=== PATIENT | female | born 1965 | race Caucasian/White ===

== ENCOUNTER 2017-05-24 05:00 | Inpatient (IN) | payer BC ==
[2017-05-24] MEDS ORDERED: MORPHINE SULFATE 15 MG TABLET.SA PO PRN (06:00)
[2017-05-24] MEDS ORDERED: ROPIVACAINE HCL/PF 100 MG, KETOROLAC TROMETHAMINE 30 MG, EPINEPHrine 0.2 MG in NORMAL S... IJ PRN (06:00)
[2017-05-24] MEDS ORDERED: TRANEXAMIC ACID 1,000 MG in NORMAL SALINE 100 ML IV PRN (06:00)
[2017-05-24] MEDS ORDERED: ceFAZolin SODIUM 1 GM VIAL IV PRN (06:00)
[2017-05-24] MEDS ORDERED: RINGER'S SOLUTION,LACTATED 1,000 ML IV PRN (06:00)
[2017-05-24] MEDS ORDERED: RINGER'S SOLUTION,LACTATED 1,000 ML IV ONE ×2 (06:45→07:40)
[2017-05-24] MEDS ORDERED: diphenhydrAMINE HCL 50 MG/ML VIAL IV PRN (09:16)
[2017-05-24] MEDS ORDERED: MAG HYDROX/ALUMINUM HYD/SIMETH 30 ML UDC PO PRN (09:16)
[2017-05-24] MEDS ORDERED: ACETAMINOPHEN 500 MG TABLET PO PRN (09:16)
[2017-05-24] MEDS ORDERED: ZOLPIDEM TARTRATE 5 MG TABLET PO PRN (09:16)
[2017-05-24] MEDS ORDERED: HYDROmorphone HCL 1 MG/ML DISP.SYRIN IV PRN (09:16)
[2017-05-24] MEDS ORDERED: ONDANSETRON HCL/PF 2 MG/ML VIAL IV PRN (09:16)
[2017-05-24] MEDS ORDERED: MAGNESIUM HYDROXIDE 30 ML UDC PO PRN (09:16)
[2017-05-24] MEDS ORDERED: PROMETHAZINE HCL 5 MG in DEXTROSE 5 % IN WATER 50 ML IV PRN ×2 (09:16)
[2017-05-24] MEDS ORDERED: EPINEPHrine 0.3 MG DISP.SYRIN IM PRN (09:18)
--- NOTE | 2017-05-24 09:21 | OR ---
Operative Report - Dictated Report Narrative: Date: 05/24/2017 Preoperative diagnosis: Left Knee degenerative joint disease. Postoperative diagnosis: Left Knee degenerative joint disease. Procedure: Left Total knee arthroplasty. Surgeon: Tejas Whaley M.D. Tube Molder Fiberglass: Rafal Mckeon PA-C Anesthesia: Spinal with regional block and local periarticular joint injection. Complications: None Specimens: Bone for disposal. Estimated blood loss: Minimal. Tourniquet time: 105 Minutes at 350 millimeters of mercury. Retained implants: Depuy Attune size 7 left lugged cemented posterior stabilized femoral component. Size 7 fixed-bearing cemented tibial platform. 7 by 7 millimeter posterior stabilized cross-linked tibial insert. 38 millimeter medialized patella button. Indications: Mrs. Murray is a 51-year-old female who presented on an ACL reconstruction and one on to develop posttraumatic degenerative joint disease. This patient was followed in my clinic for period of time with significant complaints of left knee pain consistent with arthritic changes. She had failed conservative measures including, but not limited to, activity modification, passage of time, medications, and other conservative measures. Patient wished to proceed with surgical treatment. The risks, benefits, and alternatives were discussed in clinic. The risks of , blood clots, bleeding, infection, nerve/tendon blood vessel/ injury, malposition of components, intraoperative fracture, postoperative limited range of motion, persistent pain, failure of components, and need for additional procedures. Patient wished to proceed consent was obtained after answering all questions. Procedure: After marking the correct extremity on the floor, the patient was taken to the operating room. A timeout was performed. IV antibiotics consisting of Ancef were administered prior to the procedure. A regional followed by spinal anesthetic was induced by anesthesia, per my request, on the operative table with all bony prominences well-padded. Pinto catheter was placed, and a bump was placed under the operative side buttock. SCDs and JOSEPHINE hose were utilized on the nonoperative leg. A well-padded tourniquet was applied to the operative thigh. The operative leg was then pre-scrubbed with alcoho,l prepped, and draped in a standard sterile fashion. After exsanguinating the extremity with an Esmarch bandage, the tourniquet was inflated. After marking out the anterior knee for standard incision centered over the patella, the skin was incised and dissected down to the joint retinaculum. The joint retinaculum was marked out as well as the horizontal axis of the patella, and a standard medial parapatellar arthrotomy was then made. The most proximal aspect of the quadriceps tendon and the patella tendon insertion were protected from release. A partial synovectomy was performed as well as a resection of the infrapatellar fat pad. The distal femoral fat pad proximal to the trochlea was also resected using cautery. The soft tissues were elevated off the medial aspect of the proximal tibia using a Martínez elevator ensuring that we did not transect the medial collateral ligament. Upon initial evaluation range of motion was approximately 0 degrees to 120 degrees of flexion. There were signs of advanced arthrosis in the medial, lateral, and patellofemoral joint spaces. There were large marginal osteophytes which were removed with a rongeur. We did encounter Ethibond suture from her ACL reconstruction which was removed using a rongeur. There do not appear to be any other retained implants. The knee was hyperflexed and the patella was tucked laterally. Protecting the surrounding soft tissues with Homans, an entry drill was placed down the femoral canal using Whitesides line for guidance into the entry point. The intramedullary femoral alignment juancho was utilized in order to cut the distal femur in 5 degrees of valgus resecting 10 millimeters of bone. Next the distal femur was sized to a size 7. A posterior referencing guide was utilized to place the distal femoral cutting block in 3 degrees of external rotation. This was pinned into place. The rotation was confirmed both visually and based on anatomic landmarks. The 4 in 1 cutting jig of the appropriate size was utilized in order to make all bony cuts. The angle wing was used to ensure no notching. Retractors were utilized in order to protect surrounding soft tissues. This cut did not result in any excessive notching. We then cut the box centered over the distal femur. This allowed for resection of the anterior and posterior cruciate ligaments. I then turned my attention to the preparation of the tibia. Using an extra medullary tibial alignment juancho, 4 millimeters of bone was resected off the medial articular surface. This was made perpendicular to the mechanical axis of the joint with the alignment juancho centered over the ankle mortise. The alignment juancho was checked and was noted to be parallel to the mechanical axis, centered over the medial one third of the tibial tubercle, paralleling the anterior surface of the tibia. We then turned our attention to the remaining meniscus and soft tissues. These were removed while protecting the surrounding ligaments and soft tissues. The marginal osteophytes off the anterior, posterior, medial, lateral aspects of the femur and tibia were removed. The tibia was sized out to a size 7. Next the tibia was drilled and punched in an externally rotated position. Next the trial femur and a series of tibial inserts were utilized in order to allow for full extension and maximal flexion. It was found that a 7 millimeter insert gave the best range of motion and stability at multiple flexion points as well as at full extension there was less than 2 mm of gapping both medially and laterally. There is minimal anterior translation with the knee at 90 degrees of flexion and no signs of being able to dislocate the knee. The patella was then prepared. The initial thickness was 25 millimeters. This was reamed down to 14 millimeters parallel to the anterior surface of the patella. It was sized out to a size 38 medialized patella button. This was then drilled and trialed. Without any medial restraint the patella tracked appropriately and did not sublux or dislocate. At this point, it was felt these were the appropriate sized implants, and all trials were removed. The standard periarticular joint injection consisting of ropivacaine, Toradol, and epinephrine were injected into the periarticular joint tissues. The bony surfaces were thoroughly irrigated with a pulsatile- suction saline irrigation device. A bone plug from the prior resected anterior chamfer cut was placed into the drill hole at the distal femur. The bony surfaces were then dried in preparation for placement of the implants. The cement was vacuum mixed per the first helper's instructions. The cement was placed on the dry bony surfaces and posterior aspect of the implants. The implants were impacted into place, removing all extruded cement. At this point anesthesia administered tranexamic acid per protocol intravenously. The knee was placed in extension with axial loading with the trial insert while the cement cured. Once the cement cured, all remaining extruded cement was removed. The knee was placed through a range of motion with the trial insert to ensure appropriate range of motion and stability. Final range of motion was approximately 0 to 120 degrees. The knee was again thoroughly irrigated with pulsatile saline lavage. The final polyethylene insert was then impacted into place ensuring no retained soft tissues. The remaining periarticular joint injection was injected. A medium Hemovac drain was placed exiting superior laterally. The knee was then placed over a triangle and the arthrotomy was closed with interrupted #1 Vicryl after thoroughly irrigating the joint. The deep and subcutaneous tissues were closed with interrupted 0 and 3-0 Vicryl respectively. Skin was closed with a running subcutaneous 3-0 Monocryl and Prineo Dermabond dressing. 4 x 4's, Sof-Rol, and a full leg David wrap were applied. All sponge, needle, blade, and instrument counts were correct prior to closing the wounds. Postoperative condition: The patient was awoken and transferred to the postanesthesia care unit in stable condition. Plan is to be admitted to the inpatient medical/surgical floor postoperatively for 24 hours of IV antibiotics , physical therapy, occupational therapy, and medical comanagement. Patient will be weightbearing as tolerated with range of motion as tolerated. DVT prophylaxis will be with SCDs, JOSEPHINE hose, and pharmacological anticoagulation. Anticipated hospital stay is approximately 2-4 days.
--- NOTE | 2017-05-24 09:39 | OR ---
Anesthesia Procedure Note - Anesthesia Procedure Note Date of Service: 05/24/17 Narrative: Vital Signs - Last Taken Temp 36.4 C L 05/24/17 06:28 Pulse 71 05/24/17 06:28 Resp 20 05/24/17 06:28 BP 147/94 05/24/17 06:28 Pulse Ox 97 05/24/17 06:28 O2 Oxygen Delivery Method Room Air 05/24/17 09:35 ANESTHESIA PROCEDURE NOTE Date of Procedure: 05/24/2017. Time of procedure: 644. Performed by: Sanjiv Egan CRNA In Flight Refueling Manager: None. Preprocedure diagnosis: Left total knee arthroplasty. Post procedure diagnosis: Same. Procedure: Left ultrasound guided femoral block for postoperative analgesia. Indications: The patient is a 51 -year-old female who was consulted for a left ultrasound-guided femoral nerve block for postoperative analgesia related to left total knee arthroplasty. Findings: See below. Details of the procedure: The tissue over the intended target site was cleansed with ChloraPrep. 1 ml Lidocaine 1 % was infiltrated to the skin and subcutaneous tissue. Under sterile technique and ultrasound guidance a 21-gauge block needle was inserted anterior to the left femoral nerve . 30 mL's of 0.5% bupivacaine plus epinephrine 1 200,000 was injected after negative aspiration for blood. Spread of local anesthetic surroundind the femoral nerve was observed throughout the injection with ultrasound. The needle was removed intact. No complications were noted. The images were retained in the Hospital medical database . EBL: Minimal. Fluids: N/A. Specimen: N/A. Post procedure condition: The patient tolerated the procedure well. No complications were noted. Thank you for this consultation. Sanjiv Egan CRNA
[2017-05-24] MEDS ORDERED: SUMAtriptan SUCCINATE 50 MG TABLET PO PRN (09:40)
[2017-05-24] MEDS: KETOROLAC TROMETHAMINE 30 MG/ML VIAL IV SCH ×3 (10:19→22:20)
[2017-05-24] MEDS: DEXTROSE 5%-LACTATED RINGERS 1,000 ML IV PRN ×2 (10:20→19:22)
[2017-05-24] MEDS: oxyCODONE HCL/ACETAMINOPHEN 1 TAB TABLET PO PRN ×3 (10:29→19:18)
[2017-05-24] MEDS: ceFAZolin SODIUM 1 GM in DEXTROSE 5 % IN WATER 100 ML IV SCH ×6 (10:42→22:20)
--- NOTE | 2017-05-24 19:53 | HP ---
Chief Complaint - Chief Complaint Date of Service: 05/24/17 Time of Service: 19:39 Chief Complaint: Left knee pain History of Present Illness: Patient presented for left knee arthroscopy which was done earlier today, indication being left knee pain. She is doing quite well this evening, having already walked part way down the [place] with assistance. - Patient's Past Medical History Patient History - Medical: Migraines, Obesity Patient History - Cardiac/Respiratory: Hypertension, Other - Pulmonary embolism after knee surgery, genital herpes in 2001, rosacea, urticaria (maybe after eating tamazight food), vertigo Patient History - Cancer: No Hx of Cancer Patient History - Surgical Procedures: Cholecystectomy, Tubal Ligation, Other - surgery for migrated IUD, hysteroscopy for pelvic pain, ACL repair on left, culposcopy for cervicitis Patient History - Other: None LMP (females 10-50): Menopausal - Family History Mother Family History - Medical: History Unknown Family History - Cardiac/Respiratory: History Unknown Family History - Cancer: History Unknown Father Family History - Medical: , No pertinent hx Family History - Cardiac/Respiratory: No pertinent hx Family History - Cancer: Colon, Lung Sister Family History - Medical: Other Family History - Cardiac/Respiratory: No pertinent hx Family History - Cancer: No pertinent family hx Paternal Aunt Family History - Medical: No pertinent hx Family History - Cardiac/Respiratory: No pertinent hx Family History - Cancer: Breast - Social History Living Situations: spouse Abuse History: No History of abuse Psych History: Hx of Anxiety Smoking Status: Never smoker Have you smoked in the past 12 months: No Do you dip or chew tobacco: No Alcohol Use: occasionally Drug Use: none - Immunizations Immunizations Up to Date: No Hx Pneumococcal Vaccination: No History of Influenza Vaccine: Yes Review Of Systems (GEN) - Review of Systems Generalized/Overall Review: Present: No Symptoms Reported EENTM: Present: No Symptoms Reported Respiratory: Present: No Symptoms Reported Cardiac: Present: No Symptoms Reported Abdominal: Present: No Symptoms Reported Genitourinary: Present: No Symptoms Reported Musculoskeletal: Present: Joint Pain Neurological: Present: No Symptoms Reported Skin: Present: No Symptoms Reported Endocrine: Present: No Symptoms Reported Misc: All systems neg except as marked Immunizations: IMMUNIZATION HX Immunizations Up to Date No History of Influenza Vaccine Yes Hx Pneumococcal Vaccination No Allergies/Adverse Reactions: Allergies Allergy/AdvReac Type Severity Reaction Status Date / Time aspirin Allergy Severe Anaphylaxis Verified 05/24/17 06:27 divalproex sodium AdvReac Intermediate Other Verified 05/24/17 06:27 [From Depakote] topiramate [From Topamax] AdvReac Mild LIGHTHEADED Verified 05/24/17 06:27 NESS Home Medications: HOME MEDICATIONS EPINEPHrine [Epipen] 0.3 mg IM PRN PRN 04/13/16 [Last Taken Unknown] Atenolol [Tenormin] 100 mg PO BID 05/12/17 [Last Taken 05/24/17 0400] Furosemide [Lasix] 20 mg PO DAILY 05/12/17 [Last Taken Unknown] SUMAtriptan SUCCINATE [Imitrex] 100 mg PO Q2H PRN 05/12/17 [Last Taken Unknown] amLODIPine BESYLATE [Norvasc] 10 mg PO DAILY 05/12/17 [Last Taken 05/24/17 0400] traMADol HCL [Ultram] 50 mg PO Q6H PRN 05/12/17 [Last Taken Unknown] Exam - Exam Vital Signs: Vital Signs - Last Taken Selected Entries 05/24/17 05/24/17 13:00 16:05 Temperature 36.8 C Pulse Rate 75 Respiratory 16 Rate Blood Pressure 121/77 O2 Sat by Pulse 99 Oximetry Oxygen Delivery Room Air Method Constitutional: Present: Alert, Oriented x3, Cooperative, Well developed, Well nourished, No distress ENT Exam: Present: normal ENT inspection, hearing grossly normal Neck: Present: normal inspection Back Exam: Present: normal inspection, no CVA tenderness, no vertebral tenderness Respiratory: Present: normal breath sounds, no respiratory distress Cardiovascular/Chest: Present: regular rate, rhythm, no chest tenderness Abdomen: Present: Normal bowel sounds, soft, nontender, nondistended, no rebound tenderness, no hepatospenomegaly, no masses, obese Extremity: Present: no pedal edema, other - dressing on left knee Skin Exam: Present: normal color, warm/dry, no cyanosis Neurologic: Present: alert, oriented x 3 Appearance: Present: appropriate appearance, appropriate insight, neat, no memory impairment Eye contact: Present: cooperative, good eye contact, normal speech Thoughts: Present: normal thought pattern Assessment/Plan - Assessment/Plan (1) Status post total left knee replacement Assessment: Post op protocol Problem: Acute (2) Hypertension Problem: Chronic Qualifiers: Hypertension type: essential hypertension Qualified Code(s): I10 - Essential (primary) hypertension (3) Migraine Problem: Inactive (4) History of pulmonary embolism Problem: Acute (5) History of pulmonary embolism Problem: Acute
[2017-05-24] MEDS: MORPHINE SULFATE 15 MG TABLET.SA PO SCH (20:18)
[2017-05-24] MEDS: SENNOSIDES/DOCUSATE SODIUM 1 TAB TABLET PO SCH (20:18)
[2017-05-24] MEDS: ATENOLOL 100 MG TABLET PO SCH (20:18)
[2017-05-25] MEDS: oxyCODONE HCL/ACETAMINOPHEN 1 TAB TABLET PO PRN ×4 (02:32→17:23)
[2017-05-25] MEDS: KETOROLAC TROMETHAMINE 30 MG/ML VIAL IV SCH ×4 (02:32→21:17)
[2017-05-25 05:47] LABS: Hematocrit 35.2 % (37.0-47.0); Hemoglobin 11.5 gm/dL (12.5-16.0); Mean Cell Volume 89.8 fl (78-100); Mean Corpuscular Hemoglobin 29.3 pg (27-31); Mean Corpuscular Hgb Conc 32.7 g/dl (32-36); Mean Platelet Volume 9.1 fl (6.0-9.5); Platelet Count 168 K/mm3 (150-450); Red Blood Count 3.92 M/mm3 (4.2-5.4); Red Cell Distribution Width 12.9 % (11.5-14.0); White Blood Count 3.8 K/mm3 (4.0-10.5)
[2017-05-25 05:55] LABS: Anion Gap 10.6 mmol/L (6.8-13.8); BUN/Creatinine Ratio 7.9 (9.0-21.6); Calcium * 8.4 mg/dL (7.9-10.9); Carbon Dioxide 29.1 mmol/L (24-32.6); Estimated Creat Clear 98.7; Potassium 3.7 mmol/L (3.4-4.6)
--- NOTE | 2017-05-25 08:09 | PN ---
Subjective - Date and Time Seen Date: 05/25/17 Time: 08:08 Subjective Narrative: Subjective: Reports no concerns. Was able to get to the chair with therapy. Pain is well-controlled. Voiding without any complications. Tolerating by mouth intake. Denies any nausea or vomiting. Denies calf pain. Slept well. Physical exam: Alert and oriented to person, place and time Left Extremity: Palpable dorsalis pedis pulse. Sensation grossly intact to light touch. Dressings clean and dry. Able to flex and extend ankle and toes. No excessive drainage. Calf and thigh are soft and nontender. Assessment: Postop day 1 status post left total knee arthroplasty. Plan: Continue with physical and occupational therapy weightbearing as tolerated. Continue with anticoagulation. 24 hours postoperative prophylactic antibiotics. Pain control with goal to rely on oral medications. Continue bowel regimen. Will need 6 weeks with walker or assitive device to protect joint while ambulating during the recovery process. Discharge planning. Discontinue drain and Pinto catheter. Repeat labs in a.m. Objective - Vitals Vitals: Last Vital Signs Temp 36.5 C 05/25/17 06:35 Pulse 61 05/25/17 06:35 Resp 18 05/25/17 06:35 BP 95/57 05/25/17 06:35 Pulse Ox 97 05/25/17 06:35 - Abnormal Lab Findings Abnormal Lab Findings: Abnormal Lab Results 05/25/17 05/25/17 Range/Units 05:43 05:43 WBC 3.8 L (4.0-10.5) K/mm3 RBC 3.92 L (4.2-5.4) M/mm3 Hgb 11.5 L (12.5-16.0) gm/dL Hct 35.2 L (37.0-47.0) % BUN/Creatinine Ratio 7.9 L (9.0-21.6) Cauti Physician Documentation - Urinary Catheter Management Urethral (Pinto) Date of Insertion: 05/24/17 Time of Insertion: 07:10 Date of Removal: 05/25/17 Time of Removal: 06:28 Assessment/Plan - Problems/Diagnosis (1) Acute blood loss anemia Problem: Acute (2) History of pulmonary embolism Problem: Chronic (3) Status post total left knee replacement Problem: Acute (4) Hypertension Problem: Chronic Qualifiers: Hypertension type: essential hypertension Qualified Code(s): I10 - Essential (primary) hypertension (5) Migraine Problem: Chronic (6) Uncontrolled hypertension Problem: Acute
[2017-05-25] MEDS: FUROSEMIDE 20 MG TABLET PO SCH (09:08)
[2017-05-25] MEDS: ATENOLOL 100 MG TABLET PO SCH ×2 (09:08→21:12)
[2017-05-25] MEDS: amLODIPine BESYLATE 10 MG TABLET PO SCH (09:08)
[2017-05-25] MEDS: MORPHINE SULFATE 15 MG TABLET.SA PO SCH ×2 (09:09→21:17)
[2017-05-25] MEDS: ENOXAPARIN SODIUM 40 MG/0.4 ML SYRG SC SCH (09:10)
[2017-05-25] MEDS ORDERED: NORMAL SALINE 1,000 ML IV ONE (09:12)
--- NOTE | 2017-05-25 09:57 | PN ---
<Diana Girard - Last Filed: 05/25/17 10:02> Subjective - Date and Time Seen Date: 05/25/17 Time: 09:57 Subjective Narrative: up walking to chair. doing well. denies needs. no cp/dyspnea/nausea/vomiting Objective - Review of Systems Generalized/Overall Review: Reports: No Symptoms Reported EENTM: Reports: No Symptoms Reported Respiratory: Reports: No Symptoms Reported Cardiac: Reports: No Symptoms Reported Abdominal: Reports: No Symptoms Reported Genitourinary Symptoms: Reports: No Symptoms Reported Musculoskeletal Complaints: Reports: No Symptoms Reported Neurological: Reports: No Symptoms Reported Skin: Reports: No Symptoms Reported Misc: All systems neg except as marked - Vitals Vitals: Last Vital Signs Temp 36.5 C 05/25/17 06:35 Pulse 68 05/25/17 09:08 Resp 18 05/25/17 06:35 BP 92/55 05/25/17 09:08 Pulse Ox 97 05/25/17 06:35 - Abnormal Lab Findings Abnormal Lab Findings: Abnormal Lab Results 05/25/17 05/25/17 Range/Units 05:43 05:43 WBC 3.8 L (4.0-10.5) K/mm3 RBC 3.92 L (4.2-5.4) M/mm3 Hgb 11.5 L (12.5-16.0) gm/dL Hct 35.2 L (37.0-47.0) % BUN/Creatinine Ratio 7.9 L (9.0-21.6) - Exam Constitutional: Present: Alert, Cooperative, No distress ENT Exam: Present: hearing grossly normal Neck: Present: full range of motion, supple Respiratory: Present: lungs clear, normal breath sounds, no accessory muscle use Cardiovascular/Chest: Present: normal peripheral pulses, regular rate, rhythm Abdomen: Present: soft, nontender, nondistended /Rectal: Present: Exam deferred Extremity: Present: normal inspection - right, leg pain - left Skin Exam: Present: normal color, warm/dry, no cyanosis Cauti Physician Documentation - Urinary Catheter Management Urethral (Pinto) Urethral Indwelling: No Date of Insertion: 05/24/17 Time of Insertion: 07:10 Date of Removal: 05/25/17 Time of Removal: 06:28 Assessment/Plan Plan Narrative: POD #1 s/p LTKA - ortho following pain controlled with oral medications. axel removed this am. bp running on the low side - sbp in the 90s. hold bp meds today. 1 Liter NS bolus over 4 hours today. instructed pt to notify nursing staff if she gets lightheaded or dizzy. anticoagulation per ortho. encourage ambulation - PT/OT following. monitor closely. - Problems/Diagnosis (1) Acute blood loss anemia Problem: Acute (2) History of pulmonary embolism Problem: Acute (3) Status post total left knee replacement Problem: Acute (4) Hypertension Problem: Chronic QualifierTitle: Hypertension type: essential hypertension Qualified Code( s): I10 - Essential (primary) hypertension <Bright Blackwood - Last Filed: 05/25/17 18:33> Subjective Subjective Narrative: A little light headed today. Holding BP meds for now. Bolused saline. doing quite well. Will follow the post up protocol. I personally have directed all our nurse practitioner hospitalist care for this patient. Objective - Vitals Vitals: Last Vital Signs Temp 36.7 C 05/25/17 15:10 Pulse 72 05/25/17 15:10 Resp 20 05/25/17 15:10 BP 106/63 05/25/17 15:10 Pulse Ox 97 05/25/17 15:10 - Abnormal Lab Findings Abnormal Lab Findings: Abnormal Lab Results 05/25/17 05/25/17 Range/Units 05:43 05:43 WBC 3.8 L (4.0-10.5) K/mm3 RBC 3.92 L (4.2-5.4) M/mm3 Hgb 11.5 L (12.5-16.0) gm/dL Hct 35.2 L (37.0-47.0) % BUN/Creatinine Ratio 7.9 L (9.0-21.6) Assessment/Plan - Problems/Diagnosis (1) Status post total left knee replacement Problem: Acute (2) Hypertension Problem: Chronic Qualifiers: Hypertension type: essential hypertension Qualified Code(s): I10 - Essential (primary) hypertension (3) Migraine Problem: Chronic (4) History of pulmonary embolism Problem: Chronic (5) History of pulmonary embolism Problem: Acute
[2017-05-25] MEDS: SENNOSIDES/DOCUSATE SODIUM 1 TAB TABLET PO SCH (21:16)
[2017-05-26] MEDS: oxyCODONE HCL/ACETAMINOPHEN 1 TAB TABLET PO PRN ×2 (02:28→06:55)
[2017-05-26] MEDS: KETOROLAC TROMETHAMINE 30 MG/ML VIAL IV SCH (03:45)
[2017-05-26 05:24] LABS: Hematocrit 34.2 % (37.0-47.0); Mean Corpuscular Hemoglobin 28.9 pg (27-31); Mean Corpuscular Hgb Conc 32.2 g/dl (32-36); Mean Platelet Volume 9.9 fl (6.0-9.5); Platelet Count 183 K/mm3 (150-450); Red Cell Distribution Width 12.7 % (11.5-14.0); White Blood Count 5.1 K/mm3 (4.0-10.5)
[2017-05-26 05:29] LABS: Anion Gap 14.1 mmol/L (6.8-13.8); BUN/Creatinine Ratio 10.5 (9.0-21.6); Calcium * 8.1 mg/dL (7.9-10.9); Carbon Dioxide 23.8 mmol/L (24-32.6); Estimated Creat Clear 98.7; Potassium 3.9 mmol/L (3.4-4.6)
[2017-05-26 06:47] VITALS: BP 111/70
--- NOTE | 2017-05-26 07:50 | PN ---
Subjective - Date and Time Seen Date: 05/26/17 Time: 07:46 Subjective Narrative: Not lightheaded. Still holding BP meds because BP on low side without them. Doing quite well. Will follow the post up protocol. Making great progress, in good spirits, may hold BP meds for a while after discharge. Objective - Review of Systems Generalized/Overall Review: Reports: No Symptoms Reported EENTM: Reports: No Symptoms Reported Respiratory: Reports: No Symptoms Reported Cardiac: Reports: No Symptoms Reported Abdominal: Reports: No Symptoms Reported Genitourinary Symptoms: Reports: No Symptoms Reported Musculoskeletal Complaints: Reports: Joint Pain Neurological: Reports: No Symptoms Reported Skin: Reports: No Symptoms Reported Endocrine: Reports: No Symptoms Reported Misc: All systems neg except as marked - Vitals Vitals: Last Vital Signs Selected Entries 05/26/17 06:46 Temperature 36.3 C L Temperature Temporal Artery Source Scan Pulse Rate 80 Respiratory 18 Rate Blood Pressure 111/70 O2 Sat by Pulse 98 Oximetry Oxygen Delivery Room Air Method - Abnormal Lab Findings Abnormal Lab Findings: Abnormal Lab Results 05/26/17 05/26/17 Range/Units 05:10 05:10 RBC 3.80 L (4.2-5.4) M/mm3 Hgb 11.0 L (12.5-16.0) gm/dL Hct 34.2 L (37.0-47.0) % MPV 9.9 H (6.0-9.5) fl Carbon Dioxide 23.8 L (24-32.6) mmol/L Anion Gap 14.1 H (6.8-13.8) mmol/L - Exam Constitutional: Present: Alert, Oriented x3, Cooperative, Well nourished, Obese ENT Exam: Present: normal ENT inspection, hearing grossly normal Neck: Present: normal inspection Respiratory: Present: lungs clear, normal breath sounds Cardiovascular/Chest: Present: regular rate, rhythm, no murmur Abdomen: Present: Normal bowel sounds, soft, nontender, nondistended, no rebound tenderness, no hepatospenomegaly, no masses, obese Extremity: Present: normal inspection, pedal edema Skin Exam: Present: normal color, warm/dry, no cyanosis Neurologic: Present: alert, oriented x 3 Appearance: Present: appropriate appearance, appropriate insight, neat, no memory impairment Eye contact: Present: cooperative, good eye contact, normal speech Thoughts: Present: normal thought pattern Cauti Physician Documentation - Urinary Catheter Management Urethral (Pinto) Urethral Indwelling: No Date of Insertion: 05/24/17 Time of Insertion: 07:10 Date of Removal: 05/25/17 Time of Removal: 06:28 Assessment/Plan Plan Narrative: Follow post op protocol - Problems/Diagnosis (1) Status post total left knee replacement Problem: Acute (2) Hypertension Problem: Chronic Qualifiers: Hypertension type: essential hypertension Qualified Code(s): I10 - Essential (primary) hypertension (3) Migraine Problem: Chronic (4) History of pulmonary embolism Problem: Chronic (5) History of pulmonary embolism Problem: Acute
--- NOTE | 2017-05-26 08:46 | DS ---
(1) Acute blood loss anemia Problem: Acute (2) History of pulmonary embolism Problem: Chronic (3) Status post total left knee replacement Problem: Acute (4) Hypertension Problem: Chronic Qualifiers: Hypertension type: essential hypertension Qualified Code(s): I10 - Essential (primary) hypertension (5) Migraine Problem: Chronic (6) Uncontrolled hypertension Problem: Acute Description of Stay: Mrs. Murray was admitted to the floor after undergoing left total knee arthroplasty. Tolerated this well. Was admitted to the floor postoperatively for 24 hours of IV antibiotics, pain control, medical comanagement, and occupational and physical therapy. OT and PT were consulted to assist with activities of daily living and ambulation. Was made weightbearing as tolerated with range of motion as tolerated. Pain was initially controlled with IV regimen. This was transitioned to oral once tolerating a by mouth intake. Was resumed on home diet and medications. Had a Pinto catheter inserted and the operating room which was discontinued on postoperative day 1. A drain was placed intraoperatively into the knee which was discontinued on postoperative day 1. Lovenox SCD and JOSEPHINE hose were utilized for DVT prophylaxis. Vital signs remained stable to the hospital course. Serial labs were obtained which showed a final hemoglobin of 11.0 grams. BMP was reviewed and was stable. Physical examination throughout the hospital course showed an extremity that had sensation that was intact to light touch, palpable pulses, a benign wound, motor intact to the toes, ankle, and knee. Knee range of motion was approximately 5 degrees to 60 degrees. Once an oral pain regimen was tolerated and physical therapy goals were met, it was felt that they were stable for discharge to home. Instructions: Continue with weightbearing as tolerated and range of motion as tolerated. It is okay to shower and get the wound wet as long as there is no drainage from the wound. Do not bathe or soak the wound. If there is any drainage from the wound keep the wound clean and dry and cover with dry gauze and tape. Change every 2-3 days as needed if there is any drainage. Cover wound while showering if there is any drainage. Continue with physical therapy. Resume home diet. Report any fever over 101.5 Fahrenheit, uncontrolled pain, increased drainage, foul odor of drainage, new or increased calf pain or shortness of breath, or any other significant complaints. A 325mg dialy aspirin will be started after finishing anticoagulation if not allergic. Continue with JOSEPHINE hose on the operative extremity until instructed otherwise. No driving until instructed otherwise. Follow up in approximately 10-14 days. Procedures Performed: see notes below List Procedures: Left total knee arthroplasty Discharge Disposition: Home self care Disposition: Still a patient Condition: Good Discharge Activity: Activity as tolerated, Weight bearing Discharge Diet: General/regular food Assisted Therapy: Physicial Therapy Referrals: Bright Blackwood MD [Primary Care Provider] - Additional Patient Instructions (free text): Follow up with [facility] Outpatient Rehab Monday05/29/17 at 9:45am. Follow up in the Orthopedic office with Dr. Whaley on 06/08/17 at 9: 45am. Prescriptions (Any new or edited meds): Morphine Sulfate [Ms Contin] 15 mg PO Q12H #20 tablet.sa oxyCODONE HCL/ACETAMINOPHEN [Percocet 5 MG/325 MG] 2 tab PO Q4H PRN #90 tablet PRN Reason: Moderate Pain Rivaroxaban [Xarelto] 10 mg PO DAILY #30 tab Complete Home Medications List: Complete Home Medication List: EPINEPHrine [Epipen] 0.3 mg IM PRN PRN 04/13/16 Atenolol [Tenormin] 100 mg PO BID 05/12/17 Furosemide [Lasix] 20 mg PO DAILY 05/12/17 SUMAtriptan SUCCINATE [Imitrex] 100 mg PO Q2H PRN 05/12/17 amLODIPine BESYLATE [Norvasc] 10 mg PO DAILY 05/12/17 Morphine Sulfate [Ms Contin] 15 mg PO Q12H #20 tablet.sa 05/26/17 Rivaroxaban [Xarelto] 10 mg PO DAILY #30 tab 05/26/17 Sennosides/Docusate Sodium [Senokot-S] 2 tab PO HS tablet 05/26/17 oxyCODONE HCL/ACETAMINOPHEN [Percocet 5 MG/325 MG] 2 tab PO Q4H PRN #90 tablet 05/26/17 Amb Orders for Discharge: PT Evaluation and Treatment Facility: [facility], Location: Rehabilitation Services
[2017-05-26] MEDS: FUROSEMIDE 20 MG TABLET PO SCH (10:13)
[2017-05-26] MEDS: ATENOLOL 100 MG TABLET PO SCH (10:13)
[2017-05-26] MEDS: amLODIPine BESYLATE 10 MG TABLET PO SCH (10:13)
[2017-05-26] MEDS: ENOXAPARIN SODIUM 40 MG/0.4 ML SYRG SC SCH (10:14)
[2017-05-26] MEDS: MORPHINE SULFATE 15 MG TABLET.SA PO SCH (10:15)
== END 2017-05-26 11:05 | disposition home or self-care (01) | DRG 470 ==
LOC: MS 05:00
PROVIDERS: ADMIT Allergy & Immunology; ATTEND Orthopaedic Surgery
PROC: 0SRD0J9 Replacement of Left Knee Joint with Synthetic Substitute, Cemented, Open Approach (ICD-10-PCS; principal; 2017-05-24 07:00)
DX: M17.12 Unilateral primary osteoarthritis, left knee (principal); D62 Acute posthemorrhagic anemia; I10 Essential (primary) hypertension; L71.9 Rosacea, unspecified; G43.909 Migraine, unspecified, not intractable, without status migrainosus; Z86.711 Personal history of pulmonary embolism; Z88.6 Allergy status to analgesic agent

== ENCOUNTER 2017-08-21 05:56 | Inpatient (IN) | payer BC ==
[2017-08-21] MEDS ORDERED: TRANEXAMIC ACID 1,000 MG in NORMAL SALINE 100 ML IV PRN (06:00)
[2017-08-21] MEDS ORDERED: ceFAZolin SODIUM 1 GM VIAL IV PRN (06:00)
[2017-08-21] MEDS ORDERED: RINGER'S SOLUTION,LACTATED 1,000 ML IV PRN (06:00)
[2017-08-21] MEDS ORDERED: ROPIVACAINE HCL/PF 100 MG, KETOROLAC TROMETHAMINE 30 MG, EPINEPHrine 0.2 MG in NORMAL S... IJ PRN (06:00)
[2017-08-21] MEDS ORDERED: MORPHINE SULFATE 15 MG TABLET.SA PO PRN (06:00)
[2017-08-21] MEDS ORDERED: RINGER'S SOLUTION,LACTATED 1,000 ML IV ONE ×4 (07:40→09:53)
--- NOTE | 2017-08-21 10:10 | POSTOP NO ---
Date of Surgery: 08/21/17 Patient Tolerated the Procedure: Well Post Operative Diagnosis/Procedures: Shake Backboard Notcher: Rafal Mckeon PA-C Post-operative Diagnosis: Right knee degenerative joint disease Finding: Above Procedure: Right total knee arthroplasty Estimated Blood Loss: Minimal Specimens: Bone for disposal
--- NOTE | 2017-08-21 10:13 | OR ---
Operative Report - Dictated Report Narrative: Date: 08/21/2017 Preoperative diagnosis: Right Knee degenerative joint disease. Postoperative diagnosis: Right Knee degenerative joint disease. Procedure: Right Total knee arthroplasty. Surgeon: Tejas Whaley M.D. Static Balancer: Rafal Mckeon PA-C Anesthesia: General and Spinal with regional block and local periarticular joint injection. Complications: None Specimens: Bone for disposal. Estimated blood loss: Minimal. Tourniquet time: 95 Minutes at 350 millimeters of mercury. Retained implants: Depuy Attune size 8 right lugged cemented posterior stabilized femoral component. Size 7 fixed-bearing cemented tibial platform. 8 by 5 millimeter posterior stabilized cross-linked tibial insert. 41 millimeter medialized patella button. Indications: Mrs. Murray is a 52-year-old female who has had long-standing right knee pain and arthrosis. This patient was followed in my clinic for period of time with significant complaints of right knee pain consistent with arthritic changes. She had failed conservative measures including, but not limited to, activity modification, passage of time, medications, and other conservative measures. Patient wished to proceed with surgical treatment. The risks, benefits, and alternatives were discussed in clinic. The risks of , blood clots, bleeding, infection, nerve/tendon blood vessel/ injury, malposition of components, intraoperative fracture, postoperative limited range of motion, persistent pain, failure of components, and need for additional procedures. Patient wished to proceed consent was obtained after answering all questions. Procedure: After marking the correct extremity on the floor, the patient was taken to the operating room. A timeout was performed. IV antibiotics consisting of Ancef were administered prior to the procedure. A regional followed by spinal anesthetic was induced by anesthesia, per my request, on the operative table with all bony prominences well-padded. When we started the case she was still having some sensation of pain and able to move her legs and thus she was transitioned to a general anesthetic. Pinto catheter was placed, and a bump was placed under the operative side buttock. SCDs and JOSEPHINE hose were utilized on the nonoperative leg. A well-padded tourniquet was applied to the operative thigh. The operative leg was then pre-scrubbed with alcoho,l prepped , and draped in a standard sterile fashion. After exsanguinating the extremity with an Esmarch bandage, the tourniquet was inflated. After marking out the anterior knee for standard incision centered over the patella, the skin was incised and dissected down to the joint retinaculum. The joint retinaculum was marked out as well as the horizontal axis of the patella, and a standard medial parapatellar arthrotomy was then made. The most proximal aspect of the quadriceps tendon and the patella tendon insertion were protected from release. A partial synovectomy was performed as well as a resection of the infrapatellar fat pad. The distal femoral fat pad proximal to the trochlea was also resected using cautery. The soft tissues were elevated off the medial aspect of the proximal tibia using a Martínez elevator ensuring that we did not transect the medial collateral ligament. Upon initial evaluation range of motion was approximately 0 degrees to 120 degrees of flexion. There were signs of advanced arthrosis in the medial, lateral, and patellofemoral joint spaces. There were large marginal osteophytes which were removed with a rongeur. The knee was hyperflexed and the patella was tucked laterally. Protecting the surrounding soft tissues with Homans, an entry drill was placed down the femoral canal using Whitesides line for guidance into the entry point. The intramedullary femoral alignment juancho was utilized in order to cut the distal femur in 5 degrees of valgus resecting 10 millimeters of bone. Next the distal femur was sized to a size 8. A posterior referencing guide was utilized to place the distal femoral cutting block in 3 degrees of external rotation. This was pinned into place. The rotation was confirmed both visually and based on anatomic landmarks. The 4 in 1 cutting jig of the appropriate size was utilized in order to make all bony cuts. The angle wing was used to ensure no notching. Retractors were utilized in order to protect surrounding soft tissues. This cut did not result in any excessive notching. We then cut the box centered over the distal femur. This allowed for resection of the anterior and posterior cruciate ligaments. I then turned my attention to the preparation of the tibia. Using an extra medullary tibial alignment juancho, 3 millimeters of bone was resected off the medial articular surface. This was made perpendicular to the mechanical axis of the joint with the alignment juancho centered over the ankle mortise. The alignment juancho was checked and was noted to be parallel to the mechanical axis, centered over the medial one third of the tibial tubercle, paralleling the anterior surface of the tibia. We then turned our attention to the remaining meniscus and soft tissues. These were removed while protecting the surrounding ligaments and soft tissues. The marginal osteophytes off the anterior, posterior, medial, lateral aspects of the femur and tibia were removed. The tibia was sized out to a size 7. Next the tibia was drilled and punched in an externally rotated position. Next the trial femur and a series of tibial inserts were utilized in order to allow for full extension and maximal flexion. It was found that a 5 millimeter insert gave the best range of motion and stability at multiple flexion points as well as at full extension there was less than 2 mm of gapping both medially and laterally. There is minimal anterior translation with the knee at 90 degrees of flexion and no signs of being able to dislocate the knee. The patella was then prepared. The initial thickness was 25 millimeters. This was reamed down to 14 millimeters parallel to the anterior surface of the patella. It was sized out to a size 41 medialized patella button. This was then drilled and trialed. Without any medial restraint the patella tracked appropriately and did not sublux or dislocate. At this point, it was felt these were the appropriate sized implants, and all trials were removed. The standard periarticular joint injection consisting of ropivacaine, Toradol, and epinephrine were injected into the periarticular joint tissues. The bony surfaces were thoroughly irrigated with a pulsatile- suction saline irrigation device. A bone plug from the prior resected anterior chamfer cut was placed into the drill hole at the distal femur. The bony surfaces were then dried in preparation for placement of the implants. The cement was vacuum mixed per the percussion instrument repairer's instructions. The cement was placed on the dry bony surfaces and posterior aspect of the implants. The implants were impacted into place, removing all extruded cement. At this point anesthesia administered tranexamic acid per protocol intravenously. The knee was placed in extension with axial loading with the trial insert while the cement cured. Once the cement cured, all remaining extruded cement was removed. The knee was placed through a range of motion with the trial insert to ensure appropriate range of motion and stability. Final range of motion was approximately 0 to 120 degrees. The knee was again thoroughly irrigated with pulsatile saline lavage. The final polyethylene insert was then impacted into place ensuring no retained soft tissues. The remaining periarticular joint injection was injected. A medium Hemovac drain was placed exiting superior laterally. The knee was then placed over a triangle and the arthrotomy was closed with interrupted #1 Vicryl after thoroughly irrigating the joint. The deep and subcutaneous tissues were closed with interrupted 0 and 3-0 Vicryl respectively. Skin was closed with a running subcutaneous 3-0 Monocryl and Prineo Dermabond dressing. 4 x 4's, Sof-Rol, and a full leg David wrap were applied. All sponge, needle, blade, and instrument counts were correct prior to closing the wounds. Postoperative condition: The patient was awoken and transferred to the postanesthesia care unit in stable condition. Plan is to be admitted to the inpatient medical/surgical floor postoperatively for 24 hours of IV antibiotics , physical therapy, occupational therapy, and medical comanagement. Patient will be weightbearing as tolerated with range of motion as tolerated. DVT prophylaxis will be with SCDs, JOSEPHINE hose, and pharmacological anticoagulation. Anticipated hospital stay is approximately 2-4 days.
[2017-08-21] MEDS ORDERED: diphenhydrAMINE HCL 50 MG/ML VIAL IV PRN (10:14)
[2017-08-21] MEDS ORDERED: HYDROmorphone HCL 1 MG/ML DISP.SYRIN IV PRN (10:14)
[2017-08-21] MEDS ORDERED: ZOLPIDEM TARTRATE 5 MG TABLET PO PRN (10:14)
[2017-08-21] MEDS ORDERED: MAG HYDROX/ALUMINUM HYD/SIMETH 30 ML UDC PO PRN (10:14)
[2017-08-21] MEDS ORDERED: PROMETHAZINE HCL 5 MG in DEXTROSE 5 % IN WATER 50 ML IV PRN ×2 (10:14)
[2017-08-21] MEDS ORDERED: MAGNESIUM HYDROXIDE 30 ML UDC PO PRN (10:14)
[2017-08-21] MEDS ORDERED: DEXTROSE 5%-LACTATED RINGERS 1,000 ML IV PRN (10:14)
[2017-08-21] MEDS ORDERED: ONDANSETRON HCL/PF 2 MG/ML VIAL IV PRN (10:14)
[2017-08-21] MEDS ORDERED: ACETAMINOPHEN 500 MG TABLET PO PRN (10:14)
[2017-08-21] MEDS ORDERED: EPINEPHrine 0.3 MG DISP.SYRIN IM PRN (10:16)
[2017-08-21] MEDS ORDERED: SUMAtriptan SUCCINATE 50 MG TABLET PO PRN (10:16)
--- NOTE | 2017-08-21 10:24 | OR ---
Anesthesia Procedure Note - Anesthesia Procedure Note Date of Service: 08/21/17 Narrative: Vital Signs - Last Taken Temp 37 C 08/21/17 07:20 Pulse 72 08/21/17 07:20 Resp 16 08/21/17 07:20 BP 151/83 08/21/17 07:20 Pulse Ox 96 08/21/17 07:20 O2 Oxygen Delivery Method Room Air 08/21/17 10:23 ANESTHESIA PROCEDURE NOTE Date of Procedure: 08/21/2017. Time of procedure: 739. Performed by: Sanjiv Egan CRNA Floor Attendant: None. Preprocedure diagnosis: Right knee degenerative joint disease. Post procedure diagnosis: Same. Procedure: Right ultrasound guided femoral block for postoperative analgesia. Indications: The patient is a 52 -year-old female, who is requesting a right ultrasound-guided femoral nerve block for postoperative analgesia related to right total knee arthroplasty. Findings: See below. Details of the procedure: The tissue over the intended target site was cleansed with ChloraPrep. 1 ml Lidocaine 1 % was infiltrated to the skin and subcutaneous tissue. Under sterile technique and ultrasound guidance a 21-gauge block needle was inserted anterior to the right femoral nerve . 20 mL's of 0.5 % bupivacaine was injected after negative aspiration for blood. Needle tip and spread of local anesthetic surrounding the femoral nerve was observed throughout the injection with realtime ultrasound visualization. The needle was removed intact. No complications were noted. The images were retained in the Hospital medical database . EBL: Minimal. Fluids: N/A. Specimen: N/A. Post procedure condition: The patient tolerated the procedure well. No complications were noted. Thank you for this consultation. Sanjiv Egan CRNA
[2017-08-21] MEDS ORDERED: NALOXONE HCL 0.4 MG/ML VIAL IV PRN (10:26)
[2017-08-21] MEDS ORDERED: HYDROmorphone HCL 2 MG/ML VIAL IV PRN (10:26)
[2017-08-21] MEDS: KETOROLAC TROMETHAMINE 15 MG/ML VIAL IV SCH ×3 (11:33→22:35)
[2017-08-21] MEDS: oxyCODONE HCL/ACETAMINOPHEN 1 TAB TABLET PO PRN (18:48)
[2017-08-21] MEDS: MORPHINE SULFATE 15 MG TABLET.SA PO SCH (21:00)
[2017-08-21] MEDS: ATENOLOL 100 MG TABLET PO SCH (21:01)
[2017-08-21] MEDS: SENNOSIDES/DOCUSATE SODIUM 1 TAB TABLET PO SCH (21:02)
[2017-08-22] MEDS: KETOROLAC TROMETHAMINE 15 MG/ML VIAL IV SCH ×4 (04:24→23:35)
[2017-08-22] MEDS: oxyCODONE HCL/ACETAMINOPHEN 1 TAB TABLET PO PRN ×3 (04:24→14:21)
[2017-08-22 05:40] LABS: Hemoglobin 10.9 gm/dL (12.5-16.0); Mean Cell Volume 88.8 fl (78-100); Mean Corpuscular Hemoglobin 28.5 pg (27-31); Mean Corpuscular Hgb Conc 32.1 g/dl (32-36); Platelet Count 182 K/mm3 (150-450); Red Blood Count 3.83 M/mm3 (4.2-5.4); Red Cell Distribution Width 12.6 % (11.5-14.0); White Blood Count 8.5 K/mm3 (4.0-10.5)
[2017-08-22 05:54] LABS: Anion Gap 10.3 mmol/L (6.8-13.8); BUN/Creatinine Ratio 9.3 (9.0-21.6); Carbon Dioxide 28.8 mmol/L (24-32.6); Estimated Creat Clear 85.5; Potassium 4.1 mmol/L (3.4-4.6)
--- NOTE | 2017-08-22 08:14 | PN ---
Subjective - Date and Time Seen Date: 08/22/17 Time: 08:12 Subjective Narrative: Subjective: Reports no concerns. Was able to, to a chair with therapy. Pain is well-controlled. Voiding without any complications. Tolerating by mouth intake. Denies any nausea or vomiting. Denies calf pain. Slept well. Physical exam: Alert and oriented to person, place and time Right lower Extremity: Palpable dorsalis pedis pulse. Sensation grossly intact to light touch. Dressings dry. Able to flex and extend ankle and toes. No excessive drainage. Calf and thigh are soft and nontender. Assessment: Postop day 1 status post right total knee arthroplasty. Plan: Due to the need for pain control, post-operative limited mobility, protection of the surgical site and joint, monitoring of the wound, and the management of chronic medical conditions, she requires continued inpatient care. Continue with physical and occupational therapy weightbearing as tolerated. Continue with anticoagulation. 24 hours postoperative prophylactic antibiotics. Pain control with goal to rely on oral medications. Continue bowel regimen. Will need 6 weeks with walker or assitive device to protect joint while ambulating during the recovery process. Discharge planning. Discontinue drain and Pinto catheter. Repeat hemogram and BMP in a.m. in order to monitor for postoperative anemia and electrolyte imbalance. Objective - Vitals Vitals: Last Vital Signs Temp 36.4 C L 08/22/17 07:01 Pulse 65 08/22/17 07:01 Resp 16 08/22/17 07:01 BP 125/75 08/22/17 07:01 Pulse Ox 98 08/22/17 07:01 - Abnormal Lab Findings Abnormal Lab Findings: Abnormal Lab Results 08/22/17 08/22/17 Range/Units 05:35 05:35 RBC 3.83 L (4.2-5.4) M/mm3 Hgb 10.9 L (12.5-16.0) gm/dL Hct 34.0 L (37.0-47.0) % Random Glucose 135 H (70-110) mg/dL Cauti Physician Documentation - Urinary Catheter Management Urethral (Pinto) Date of Insertion: 08/21/17 Time of Insertion: 08:10 Date of Removal: 08/22/17 Time of Removal: 07:35 Assessment/Plan - Problems/Diagnosis (1) Acute blood loss anemia Problem: Acute (2) History of pulmonary embolism Problem: Chronic (3) Hypertension Problem: Chronic Qualifiers: (4) Migraine Problem: Chronic (5) Status post total right knee replacement Problem: Acute
[2017-08-22] MEDS: MORPHINE SULFATE 15 MG TABLET.SA PO SCH ×2 (08:46→20:54)
[2017-08-22] MEDS: FUROSEMIDE 20 MG TABLET PO SCH (08:47)
[2017-08-22] MEDS: ATENOLOL 100 MG TABLET PO SCH ×2 (08:48→20:54)
[2017-08-22] MEDS: amLODIPine BESYLATE 10 MG TABLET PO SCH (08:48)
[2017-08-22] MEDS: ENOXAPARIN SODIUM 40 MG/0.4 ML SYRG SC SCH (08:48)
[2017-08-22] MEDS ORDERED: BENZOCAINE/MENTHOL 16 EACH BOX MM PRN (20:10)
--- NOTE | 2017-08-22 20:11 | PN ---
Subjective - Date and Time Seen Date: 08/22/17 Time: 20:10 Subjective Narrative: Patient seen today AOX3 no acute distress, she denies calf pain, no shortness of breath, chest pain, fever or chills. Pt stated she was doing well but during therapy earlier she was unsteady. She anticipating getting better with therapy tomorrow and plan to go home after climbing the steps. + flatus but no bowel movement since adm, she report her throat feels a bit sore since surgery due to intubation. Objective - Review of Systems Generalized/Overall Review: Reports: No Symptoms Reported EENTM: Reports: No Symptoms Reported Respiratory: Reports: Cough Cardiac: Reports: No Symptoms Reported Abdominal: Reports: No Symptoms Reported Genitourinary Symptoms: Reports: No Symptoms Reported Musculoskeletal Complaints: Reports: Joint Pain - right knee Neurological: Reports: No Symptoms Reported Skin: Reports: No Symptoms Reported Endocrine: Reports: No Symptoms Reported - Vitals Vitals: Last Vital Signs Temp 36.5 C 08/22/17 20:04 Pulse 63 08/22/17 20:04 Resp 18 08/22/17 20:04 BP 105/61 08/22/17 20:04 Pulse Ox 92 08/22/17 20:04 - Abnormal Lab Findings Abnormal Lab Findings: Abnormal Lab Results 08/22/17 08/22/17 Range/Units 05:35 05:35 RBC 3.83 L (4.2-5.4) M/mm3 Hgb 10.9 L (12.5-16.0) gm/dL Hct 34.0 L (37.0-47.0) % Random Glucose 135 H (70-110) mg/dL - Exam Constitutional: Present: Alert, Oriented x3, Cooperative ENT Exam: Present: normal ENT inspection Neck: Present: full range of motion Breasts: Present: Exam deferred Respiratory: Present: chest non-tender, normal breath sounds, no respiratory distress, no accessory muscle use, No rales Cardiovascular/Chest: Present: normal peripheral pulses, regular rate, rhythm, no chest tenderness, no edema Abdomen: Present: Normal bowel sounds, soft, nontender, nondistended /Rectal: Present: Exam deferred Extremity: Present: normal inspection, no calf tenderness, normal capillary refill, swelling - right knee Skin Exam: Present: normal color, warm/dry Neurologic: Present: oriented x 3 Appearance: Present: appropriate appearance Eye contact: Present: cooperative, good eye contact Thoughts: Present: normal thought pattern Cauti Physician Documentation - Urinary Catheter Management Urethral (Pinto) Date of Insertion: 08/21/17 Time of Insertion: 08:10 Date of Removal: 08/22/17 Time of Removal: 07:35 Assessment/Plan Plan Narrative: POD#1 Right Total knee arthroplasty secondary to Right Knee degenerative joint disease. Ortho following SCIP protocol completed Continue with PT/OT evaluation and treatment VTE ppx: Lovenox Pain control with dilaudid and ICe pack to affected area Hypertension-stable continue with home medications Code status: Full VTE ppx: Lovenox GI ppx: protonix Time 15 minutes - Problems/Diagnosis (1) Status post total right knee replacement Problem: Acute (2) Hypertension Problem: Chronic Qualifiers: Hypertension type: essential hypertension
[2017-08-22] MEDS: SENNOSIDES/DOCUSATE SODIUM 1 TAB TABLET PO SCH (20:54)
[2017-08-23] MEDS: KETOROLAC TROMETHAMINE 15 MG/ML VIAL IV SCH (04:05)
[2017-08-23] MEDS: oxyCODONE HCL/ACETAMINOPHEN 1 TAB TABLET PO PRN ×2 (05:45→13:06)
[2017-08-23 06:03] LABS: Hematocrit 31.3 % (37.0-47.0); Mean Cell Volume 90.7 fl (78-100); Mean Corpuscular Hgb Conc 31.9 g/dl (32-36); Mean Platelet Volume 9.2 fl (6.0-9.5); Platelet Count 143 K/mm3 (150-450); Red Blood Count 3.45 M/mm3 (4.2-5.4); White Blood Count 4.5 K/mm3 (4.0-10.5)
[2017-08-23 06:18] LABS: Anion Gap 9.8 mmol/L (6.8-13.8); BUN/Creatinine Ratio 13.6 (9.0-21.6); Calcium * 8.4 mg/dL (7.9-10.9); Carbon Dioxide 30.1 mmol/L (24-32.6); Estimated Creat Clear 90.8; Potassium 3.9 mmol/L (3.4-4.6)
[2017-08-23] MEDS: FUROSEMIDE 20 MG TABLET PO SCH (08:46)
[2017-08-23] MEDS: amLODIPine BESYLATE 10 MG TABLET PO SCH (08:47)
[2017-08-23] MEDS: ATENOLOL 100 MG TABLET PO SCH (08:48)
[2017-08-23] MEDS: MORPHINE SULFATE 15 MG TABLET.SA PO SCH (08:49)
[2017-08-23] MEDS: ENOXAPARIN SODIUM 40 MG/0.4 ML SYRG SC SCH (09:12)
[2017-08-23 10:33] VITALS: BP 123/64
--- NOTE | 2017-08-23 13:20 | PN ---
Subjective - Date and Time Seen Date: 08/23/17 Time: 13:18 Subjective Narrative: Worked with PT. Says she did the sterps today better than yesterday. Objective - Review of Systems Generalized/Overall Review: Denies: Chills, Fever Respiratory: Denies: Shortness of Breath, Orthopnea Cardiac: Denies: Chest Pain, Palpitations Abdominal: Denies: Nausea, Vomiting Genitourinary Symptoms: Denies: Frequency, Hesitancy Musculoskeletal Complaints: Reports: Joint Pain - controlled - Vitals Vitals: Last Vital Signs Temp 36.5 C 08/23/17 10:26 Pulse 60 08/23/17 10:26 Resp 14 08/23/17 10:26 BP 123/64 08/23/17 10:26 Pulse Ox 98 08/23/17 10:26 - Abnormal Lab Findings Abnormal Lab Findings: Abnormal Lab Results 08/23/17 Range/Units 05:59 RBC 3.45 L (4.2-5.4) M/mm3 Hgb 10.0 L (12.5-16.0) gm/dL Hct 31.3 L (37.0-47.0) % MCHC 31.9 L (32-36) g/dl Plt Count 143 L (150-450) K/mm3 - Exam Constitutional: Present: Alert, Oriented x3, Cooperative ENT Exam: Present: hearing grossly normal Neck: Present: supple Respiratory: Present: normal breath sounds, No rales, No wheezing Cardiovascular/Chest: Present: regular rate, rhythm, no JVD, no murmur Abdomen: Present: Normal bowel sounds, soft, nontender, nondistended Extremity: Present: no pedal edema, no calf tenderness Cauti Physician Documentation - Urinary Catheter Management Urethral (Pinto) Date of Insertion: 08/21/17 Time of Insertion: 08:10 Date of Removal: 08/22/17 Time of Removal: 07:35 Assessment/Plan - Problems/Diagnosis (1) Status post total right knee replacement Problem: Acute Narrative: POD # 2 Afebrile. continue PT/OT and anticoagulation. she is hoping to go home today. (2) Acute blood loss anemia Problem: Acute Narrative: stable (3) Hypertension Problem: Chronic Qualifiers: Hypertension type: essential hypertension Qualified Code(s): I10 - Essential (primary) hypertension Narrative: 123/64. controlled. (4) History of pulmonary embolism Problem: Chronic Narrative: continue with anticoagulation.
--- NOTE | 2017-08-23 13:33 | DS ---
(1) Acute blood loss anemia Problem: Acute (2) History of pulmonary embolism Problem: Chronic (3) Hypertension Problem: Chronic Qualifiers: Hypertension type: essential hypertension Qualified Code(s): I10 - Essential (primary) hypertension (4) Migraine Problem: Chronic (5) Status post total right knee replacement Problem: Acute Description of Stay: Mrs. Murray was admitted to the floor after undergoing right total knee arthroplasty. Tolerated this well. Was admitted to the floor postoperatively for 24 hours of IV antibiotics, pain control, medical comanagement, and occupational and physical therapy. OT and PT were consulted to assist with activities of daily living and ambulation. Was made weightbearing as tolerated with range of motion as tolerated. Pain was initially controlled with IV regimen. This was transitioned to oral once tolerating a by mouth intake. Was resumed on home diet and medications. Had a Pinto catheter inserted and the operating room which was discontinued on postoperative day 1. A drain was placed intraoperatively into the knee which was discontinued on postoperative day 1. Lovenox SCD and JOSEPHINE hose were utilized for DVT prophylaxis. Vital signs remained stable to the hospital course. Serial labs were obtained which showed a final hemoglobin of 10.0 grams. BMP was reviewed and was stable. Physical examination throughout the hospital course showed an extremity that had sensation that was intact to light touch, palpable pulses, a benign wound, motor intact to the toes, ankle, and knee. Knee range of motion was approximately 0 degrees to 70 degrees. Once an oral pain regimen was tolerated and physical therapy goals were met, it was felt that they were stable for discharge to home. Instructions: Continue with weightbearing as tolerated and range of motion as tolerated. It is okay to shower and get the wound wet as long as there is no drainage from the wound. Do not bathe or soak the wound. If there is any drainage from the wound keep the wound clean and dry and cover with dry gauze and tape. Change every 2-3 days as needed if there is any drainage. Cover wound while showering if there is any drainage. Continue with physical therapy. Resume home diet. Report any fever over 101.5 Fahrenheit, uncontrolled pain, increased drainage, foul odor of drainage, new or increased calf pain or shortness of breath, or any other significant complaints. A 325mg dialy aspirin will be started after finishing anticoagulation if not allergic. Continue with JOSEPHINE hose on the operative extremity until instructed otherwise. No driving until instructed otherwise. Follow up in approximately 10-14 days. Procedures Performed: see notes below List Procedures: Right total knee arthroplasty Discharge Disposition: Home self care Disposition: Home self-care Condition: Good Discharge Activity: Activity as tolerated, Weight bearing Discharge Diet: General/regular food Referrals: Bright Blackwood MD [Primary Care Provider] - Additional Patient Instructions (free text): PT outpatient at [facility] post op. Prescriptions (Any new or edited meds): Morphine Sulfate [Ms Contin] 15 mg PO Q12H #20 tablet.sa oxyCODONE HCL/ACETAMINOPHEN [Percocet 5 MG/325 MG] 2 tab PO Q4H PRN #90 tablet PRN Reason: Moderate Pain Rivaroxaban [Xarelto] 10 mg PO DAILY #30 tab Sennosides/Docusate Sodium [Senokot-S] 2 tab PO HS #90 tablet Complete Home Medications List: Complete Home Medication List: EPINEPHrine [Epipen] 0.3 mg IM PRN PRN 04/13/16 Atenolol [Tenormin] 100 mg PO BID 05/12/17 Furosemide [Lasix] 20 mg PO DAILY 05/12/17 SUMAtriptan SUCCINATE [Imitrex] 100 mg PO ONCE PRN 05/12/17 amLODIPine BESYLATE [Norvasc] 10 mg PO DAILY 05/12/17 traMADol HCL [Ultram] 50 mg PO QID PRN 08/01/17 Morphine Sulfate [Ms Contin] 15 mg PO Q12H #20 tablet.sa 08/23/17 Rivaroxaban [Xarelto] 10 mg PO DAILY #30 tab 08/23/17 Sennosides/Docusate Sodium [Senokot-S] 2 tab PO HS #90 tablet 08/23/17 oxyCODONE HCL/ACETAMINOPHEN [Percocet 5 MG/325 MG] 2 tab PO Q4H PRN #90 tablet 08/23/17 Amb Orders for Discharge: PT Evaluation and Treatment Facility: [facility], Location: Rehabilitation Services
== END 2017-08-23 14:55 | disposition home or self-care (01) | DRG 470 ==
LOC: MS 05:56
PROVIDERS: ADMIT Orthopaedic Surgery; ATTEND Orthopaedic Surgery
PROC: 0SRC0J9 Replacement of Right Knee Joint with Synthetic Substitute, Cemented, Open Approach (ICD-10-PCS; principal; 2017-08-21 08:00)
DX: M17.0 Bilateral primary osteoarthritis of knee (principal); D62 Acute posthemorrhagic anemia; I10 Essential (primary) hypertension; G43.909 Migraine, unspecified, not intractable, without status migrainosus; Z86.711 Personal history of pulmonary embolism